=== PATIENT | male | born 1980 | race Caucasian/White ===

== ENCOUNTER 2021-02-27 13:03 | Emergency (ER) | payer SELFPAY ==
[2021-02-27 13:05] VITALS: BP 134/92; PULSE 104; RESP 16; TEMP 36.6; O2SAT 100; BMI 29.7
--- NOTE | 2021-02-27 13:14 | ED.RN ---
CALLED [facility] REQUESTED BY PT
--- NOTE | 2021-02-27 13:58 | RAD_ITS ---
STUDY: X-RAY - UNILATERAL RIBS ( RIGHT ) WITH CHEST REASON FOR EXAM: Male, 40 years old. Injury TECHNIQUE - RIBS: 4 view(s) of the ribs. TECHNIQUE - CHEST: Single PA view of the chest. COMPARISON: None. FINDINGS - RIBS: Normal visualized ribs without a demonstrated fracture. FINDINGS - CHEST: The lungs are clear and expanded. There is no demonstrated pleural abnormality. Normal size heart. Normal mediastinum and carlita. Normal visualized pulmonary arteries. Normal visualized aortic arch and descending thoracic aorta. Normal visualized thoracic spine. Normal visualized ribs, clavicles, and shoulders. There is no demonstrated abnormality of the visualized soft tissue structures of the upper abdomen. RAD/Ribs Uni Min 3V w/PA Chest IMPRESSION: RIBS: Normal x-ray examination of the ribs. CHEST: Normal x-ray examination of the chest. Electronically Signed: Yolis Iraheta MD at 15:02 EST Tel , Service support ,
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
--- NOTE | 2021-02-27 14:15 | RAD_ITS ---
STUDY: X-RAY - RIGHT KNEE REASON FOR EXAM: Male, 40 years old. Injury TECHNIQUE: 4 view(s) of the knee. COMPARISON: None. FINDINGS: Normal visualized distal femur. There is an acute fracture of the fibular head. There is soft tissue edema. Normal proximal tibiofibular articulation. There is mild degenerative arthrosis of the medial femorotibial compartment. Normal lateral femorotibial compartment. Normal patellofemoral articulation. RAD/Knee 4 or More Views IMPRESSION: Acute fracture of the fibular head. Soft tissue edema. Electronically Signed: Yolis Iraheta MD at 14:56 EST Tel , Service support ,
[2021-02-27 15:29] VITALS: RESP 16
[2021-02-27] MEDS: COVID-19 VACC, MRNA(PFIZER)/PF 30 MCG/0.3 ML SYRINGE IM (17:07)
== END 2021-02-27 17:15 | disposition home or self-care (01) ==
PROVIDERS: Emergency Provider Emergency Medicine
DX: R10.9 Unspecified abdominal pain (principal); F17.210 Nicotine dependence, cigarettes, uncomplicated; M25.561 Pain in right knee; Y08.89XA Assault by other specified means, initial encounter; Z23 Encounter for immunization
CPT/HCPCS: 71101; 73564; 91300; 99284

== ENCOUNTER 2021-12-20 03:49 | Emergency (ER) | payer OTHER, SELFPAY ==
[2021-12-20 03:49] VITALS: BP 116/84; PULSE 89; RESP 15; TEMP 36.3; O2SAT 97; BMI 29.1
[2021-12-20 03:55] VITALS: O2SAT 97
--- NOTE | 2021-12-20 04:00 | EKG12_ITS ---
Test Reason : SOB Blood Pressure : / mmHG Vent. Rate : 075 BPM Atrial Rate : 075 BPM P-R Int : 174 ms QRS Dur : 088 ms QT Int : 344 ms P-R-T Axes : 057 027 017 degrees QTc Int : 384 ms Normal sinus rhythm Normal ECG Confirmed by RAJIV MARCOS, HIMANSHU ([id number]), design editor MEETA HUNTLEY ([id number]) on 12/20/2021 10:56:16 AM Referred By: Confirmed By:HIMANSHU VANCE MD
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
[2021-12-20] MEDS: Ipratropium/Albuterol Sulfate 3 ML AMPUL.NEB INHALATION (04:11)
[2021-12-20 04:12] VITALS: PULSE 79; RESP 15
--- NOTE | 2021-12-20 04:25 | RAD_ITS ---
INDICATION: cough EXAMINATION/TECHNIQUE: X-RAY - XR Chest 2 Views COMPARISON: 02/27/2021 FINDINGS: LINES/DEVICES: None. LUNGS: No consolidation, edema or effusion. No pneumothorax. MEDIASTINUM AND CARDIOVASCULAR STRUCTURES: Cardiac silhouette not enlarged. Central airways and mediastinal contour are unremarkable. BONES AND SOFT TISSUES: Unremarkable. RAD/Chest PA and Lateral IMPRESSION: No acute cardiopulmonary disease. Electronically Signed: Jose Horne MD at 4:45 EDT ,
[2021-12-20 04:51] VITALS: BP 131/79; PULSE 76; RESP 16; O2SAT 99
[2021-12-20] MEDS: dexAMETHasone 4 MG Tablet 10 MG PO (05:11)
== END 2021-12-20 05:14 | disposition home or self-care (01) ==
PROVIDERS: Emergency Provider Emergency Medicine; Visit Provider Emergency Medicine
DX: J40 Bronchitis, not specified as acute or chronic (principal); F17.210 Nicotine dependence, cigarettes, uncomplicated; Z86.16 Personal history of COVID-19
CPT/HCPCS: 71046; 87428; 93005; 94640; 99282

== ENCOUNTER → 2022-03-29 | Outpatient (CLI) | payer OTHER, MEDICAID, SELFPAY ==
--- NOTE | 2022-03-29 17:05 | RAD_ITS ---
STUDY: X-RAY - LUMBAR SPINE REASON FOR EXAM: Male, 41 years old. low back pain TECHNIQUE: 5 view(s) of the lumbar spine were obtained. COMPARISON: None FINDINGS: Normal lumbar lordosis. There is no substantial scoliosis. There is a normal alignment of the vertebrae. Normal vertebral bodies and endplates. Normal disc space heights. The soft tissue structures are unremarkable. RAD/L/S Spine Min 4 Views IMPRESSION: Normal x-ray examination of the lumbar spine. Electronically Signed: Lam Sandy MD at 17:26 EST ,
== END | disposition home or self-care (01) ==
LOC: MTRAD 17:05
PROVIDERS: Referring Provider Physician Assistant Surgical; Visit Provider Physician Assistant Surgical
DX: M54.50 Low back pain, unspecified (principal)
CPT/HCPCS: 72110

== ENCOUNTER → 2023-10-18 | Outpatient (CLI) | payer MEDICAID, SELFPAY ==
--- NOTE | 2023-10-18 14:35 | RAD_ITS ---
STUDY: X-RAY - RIGHT SHOULDER REASON FOR EXAM: Male, 43 years old. pain TECHNIQUE: 4 view(s) of the shoulder. COMPARISON: None. FINDINGS: Normal glenohumeral articulation. Normal acromioclavicular joint. Normal acromion. Normal humeral head and visualized proximal humerus. The soft tissue structures are unremarkable. Normal visualized pulmonary apex. RAD/Shoulder min 2 Views IMPRESSION: Normal x-ray examination of the shoulder. Electronically Signed: Lam Sandy MD at 8:34 EDT ,
--- NOTE | 2023-10-18 14:35 | RAD_ITS ---
STUDY: X-RAY - CERVICAL SPINE REASON FOR EXAM: Male, 43 years old. Neuropathy of arm with neck pain TECHNIQUE: 5 view(s) of the cervical spine were obtained. COMPARISON: None FINDINGS: Normal anterior atlantoaxial articulation. Normal odontoid process. Normal cervical lordosis. Normal vertebral bodies and endplates. Normal disc space heights. Normal visualized intervertebral neuroforamina. The soft tissue structures are unremarkable. RAD/Cerv Spine 4 or 5 Views IMPRESSION: Normal x-ray examination of the visualized cervical spine. Electronically Signed: Lam Sandy MD at 8:33 EDT ,
== END | disposition home or self-care (01) ==
PROVIDERS: PCP Family Medicine; Referring Provider Family Medicine; Visit Provider Family Medicine
DX: G56.90 Unspecified mononeuropathy of unspecified upper limb (principal); M54.2 Cervicalgia
CPT/HCPCS: 72050; 73030

== ENCOUNTER 2024-02-01 13:05 | Emergency (ER) | payer SELFPAY ==
[2024-02-01 13:07] VITALS: BP 133/77; PULSE 84; RESP 18; TEMP 36.1; O2SAT 100; BMI 26.9
--- NOTE | 2024-02-01 13:26 | RAD_ITS ---
STUDY: X-RAY - RIGHT ELBOW REASON FOR EXAM: Male, 43 years old. pain TECHNIQUE: 4 view(s) of the elbow. COMPARISON: None. FINDINGS: Normal visualized humerus, radius and ulna. Normal radiocapitellar and ulnotrochlear articulations. The soft tissue structures are unremarkable. There is no demonstrated fracture. RAD/Elbow min 3 Views IMPRESSION: Normal x-ray examination of the elbow. Electronically Signed: Luis Cunha MD at 14:23 EDT ,
--- NOTE | 2024-02-01 13:26 | RAD_ITS ---
STUDY: X-RAY CHEST REASON FOR EXAM: Male, 43 years old. cough TECHNIQUE: Frontal and lateral views of the chest. COMPARISON: 12/20/2021. FINDINGS: The lungs are clear and expanded. There is no demonstrated pleural abnormality. Normal size heart. Normal mediastinum and carlita. Normal visualized pulmonary arteries. Normal visualized aortic arch and descending thoracic aorta. Normal visualized thoracic spine. Normal visualized ribs, clavicles, and shoulders. There is no demonstrated abnormality of the visualized soft tissue structures of the upper abdomen. RAD/Chest PA and Lateral IMPRESSION: Normal x-ray examination of the chest. Electronically Signed: Luis Cunha MD at 14:24 EDT ,
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
[2024-02-01] MEDS: Ibuprofen 600 MG Tablet PO (13:37)
[2024-02-01 15:05] VITALS: BP 134/78; PULSE 89; RESP 18; O2SAT 99
== END 2024-02-01 15:18 | disposition home or self-care (01) ==
PROVIDERS: Emergency Provider Emergency Medicine; Visit Provider Emergency Medicine
DX: J06.9 Acute upper respiratory infection, unspecified (principal); M77.11 Lateral epicondylitis, right elbow; F17.210 Nicotine dependence, cigarettes, uncomplicated
CPT/HCPCS: 71046; 73080; 87631; 99282

== ENCOUNTER 2024-04-13 18:15 | Emergency (ER) | payer BC, SELFPAY ==
[2024-04-13 18:16] VITALS: BP 136/80; PULSE 106; RESP 18; TEMP 37.2; O2SAT 97; BMI 31.0
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
[2024-04-13] MEDS: Ketorolac 15 MG/ML Vial IM (19:20)
== END 2024-04-13 19:36 | disposition home or self-care (01) ==
LOC: ED 19:15
PROVIDERS: Emergency Provider Emergency Medicine; Referring Provider Emergency Medicine; Visit Provider Emergency Medicine
DX: M77.11 Lateral epicondylitis, right elbow (principal); F17.210 Nicotine dependence, cigarettes, uncomplicated; Z79.51 Long term (current) use of inhaled steroids
CPT/HCPCS: 96372; 99282

== ENCOUNTER 2024-04-14 19:19 | Emergency (ER) | payer BC, SELFPAY ==
[2024-04-14 19:20] VITALS: BP 125/74; PULSE 81; RESP 18; TEMP 36.6; O2SAT 99; BMI 29.7
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
--- NOTE | 2024-04-14 19:36 | RAD_ITS ---
EXAM: XR CHEST, 2 VIEWS CLINICAL INDICATION: fever, cough TECHNIQUE: Frontal and lateral views of the chest. COMPARISON: 02.01.24 FINDINGS: LUNGS AND PLEURAL SPACES: Unremarkable. No consolidation or edema. No pneumothorax. No effusion. HEART: Unremarkable. Cardiac silhouette not enlarged. MEDIASTINUM: Central airways and mediastinal contour are unremarkable. BONES/JOINTS: Unremarkable. No acute fracture. SOFT TISSUES: Unremarkable. RAD/Chest PA and Lateral IMPRESSION: No radiographic evidence of acute cardiopulmonary disease. Electronically Signed: Hernandez Núñez MD at 20:43 EST ,
[2024-04-14 20:31] VITALS: BP 118/77; PULSE 94; RESP 18; TEMP 36.8; O2SAT 100
== END 2024-04-14 20:32 | disposition home or self-care (01) ==
PROVIDERS: Emergency Provider Emergency Medicine; Referring Provider Emergency Medicine; Visit Provider Emergency Medicine
DX: U07.1 COVID-19 (principal); F17.210 Nicotine dependence, cigarettes, uncomplicated; Z79.51 Long term (current) use of inhaled steroids
CPT/HCPCS: 71046; 87631; 99282

== ENCOUNTER 2024-04-23 04:36 | Emergency (ER) | payer OTHER, BC, SELFPAY ==
[2024-04-23 04:37] VITALS: BP 130/100; PULSE 85; RESP 16; TEMP 36.7; O2SAT 100; BMI 31.1
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
[2024-04-23] MEDS: Morphine 4 MG/ML Syringe IM (05:02)
[2024-04-23] MEDS: Orphenadrine 60 MG/2 ML Ampul IM (05:02)
[2024-04-23] MEDS: Ketorolac 60 MG/2 ML Vial IM (05:02)
--- NOTE | 2024-04-23 05:40 | RAD_ITS ---
EXAM: XR LUMBOSACRAL SPINE, 2 OR 3 VIEWS CLINICAL INDICATION: pain, ?injury TECHNIQUE: Frontal and lateral views of the lumbar spine and sacrum. COMPARISON: Plain film from 03/29/2022 FINDINGS: VERTEBRAE: Facet joint hypertrophy at L4/5 and L5/S1. Preserved vertebral body height. No fracture. No spondylolisthesis. Preservation of the normal lumbar lordosis. DISC SPACES: See above. GASTROINTESTINAL TRACT: Unremarkable as visualized. Included bowel gas pattern is non-obstructive. RAD/Lumbar Spine 2 or 3 Views IMPRESSION: 1. No acute abnormalities identified in the lumbar spine on this plain film exam. 2. Facet joint hypertrophy at L4/5 and L5/S1. Electronically Signed: Hernandez Funes MD at 7:38 EST ,
[2024-04-23 06:48] VITALS: BP 120/89; PULSE 75; RESP 16; TEMP 36.7; O2SAT 98
== END 2024-04-23 06:55 | disposition home or self-care (01) ==
PROVIDERS: Emergency Provider Emergency Medicine; Visit Provider Emergency Medicine
DX: S39.012A Strain of muscle, fascia and tendon of lower back, initial encounter (principal); F17.210 Nicotine dependence, cigarettes, uncomplicated; Y99.0 Civilian activity done for income or pay; Z79.51 Long term (current) use of inhaled steroids; X58.XXXA Exposure to other specified factors, initial encounter
CPT/HCPCS: 72100; 96372; 99283

== ENCOUNTER → 2024-06-18 | Outpatient (CLI) | payer MEDICAID, SELFPAY ==
--- NOTE | 2024-06-18 16:34 | MRI_ITS ---
PROCEDURE: SPINE LUMBAR (ROUTINE) (MRISPL), 06/18/2024 REASON FOR EXAM: PAIN TECHNIQUE: Multisequence multiplanar MR of the lumbar spine was performed without IV contrast. COMPARISON: Radiographs 04/23/2024 FINDINGS: Vertebral body heights are preserved. T1 bright likely hemangioma within the S1 vertebral body. Similar trace likely degenerative grade 1 anterolisthesis at L4-L5. Conus medullaris terminates normally at the L1 inferior endplate level. Unremarkable appearance of the cauda equina. L1-2: Note the spinal canal and foramina are partially imaged at this level on axial sequences, but are incompletely included on sagittal sequences. No significant spinal canal or foraminal stenosis identified. L2-3: Trace diffuse disc bulging. No significant spinal canal or foraminal stenosis. L3-4: Note that axial sequences omit a portion of the neural foramen and spinal canal due to reorientation with the long axis of the spine at this level, however are the region is included in its entirety on sagittal sequences. Mild diffuse disc bulging. No significant spinal canal or foraminal stenosis evident. L4-5: Mild/moderate diffuse disc bulging. Mild facet arthropathy. Mild/moderate [id number] foraminal stenosis. No significant spinal canal stenosis. L5-S1: Diffuse disc bulging with superimposed posterior central disc protrusion with slight inferior migration and a tiny annular fissure. Mild facet arthropathy. Mild/moderate RIGHT and mild LEFT foraminal stenosis. Other: Splenomegaly on the insurance job titles, 13.7 cm. MRI/Spine Lumbar (Routine) IMPRESSION: 1. Lower lumbar spondylosis as detailed, greatest from L4-S1. No high-grade sp inal canal or foraminal stenosis identified. 2. Splenomegaly. 3. Additional description as above. Reading Location: [id number]
== END | disposition home or self-care (01) ==
PROVIDERS: PCP Student in an Organized Health Care Education/Training Program; Referring Provider Student in an Organized Health Care Education/Training Program; Visit Provider Student in an Organized Health Care Education/Training Program
DX: M54.50 Low back pain, unspecified (principal)
CPT/HCPCS: 72148

== ENCOUNTER 2024-11-01 13:00 | Outpatient (RCR) | payer MEDICAID, SELFPAY ==
--- NOTE | 2024-05-14 15:06 | HP.PTEVAL_ITS ---
Patient's Visit Information Visit Information Visit Information: NIR MALDONADO is a 43 year old M referred to Physical Therapy by LUIS Johns with a diagnosis of Lumbar radiculopathy. Date of Evaluation: 05/14/24 Physical Therapist: Joseph Duran DPT Visit Plan Frequency: 2-3x /Week Duration: 6 Weeks Plan: 1) extension progression, starting in prone to prone prop, progressing to REIL. Add in PAs as needed to restore motion 2) ice and stim as needed 3) once ROM has been stored add in neutral spine core strengthening. Pt. to add in initial extension progressing to HEP. Pt. to figure out C9 and insurance. Pt. to call back once figured out. Subjective Subjective: Pt. is here today for his initial evaluation with diagnosis of lumb ar radiculopathy. Pt. reports on 04/23/24 he was sawing a pipe, he took a felt a sharp pain in his pain and instantly down his leg. pt. has constant pain in lumbar spine and down to his L calf. He does have some issues with his R leg as well, but very infrequently. Pt. reports a constant electrical current in his L leg. Pt. reports sitting for longer periods is painful and standing for longer periods of time is pain. Pt. is currently off work as well. Pt. reports having some L leg weakness where he was walking and he left like his leg gave out on him. This did happen again after sitting for a longer period of time. Better: sitting in reclining chair. Medications: muscle relaxer. He did see pain management yesterday whom started him on prednisone. He was taking Oxy, but is now done with those. Pt. is hopeful to reduce symptoms in order to get back to all work activities. Pt. did at the end of evaluation he reports seeing a physician right after his injury and attended a bit of therapy, but does not want to go back there. He then saw pain management and a different ortho for his back. Pain Lumbar spine: Pain Intensity (Out of 10): 7 Pain Intensity Range: 5 and 10 L LE: Pain Intensity (Out of 10): 7 Pain Intensity Range: 5 and 10 Objective Objective: POSTURE: Pt. has increased wt. shift to R side, but no marked lateral shift noted. PALPATION: Pt. has marked muscle tension/guarding of B paraspinals. Pt. has increased pain with spring testing of L2-L5. NEURO: Pt. has normal sensation except at lateral L thigh. Pt. has normal perkins llar DTR bilaterally. ROM: LUMBAR SPINE: flexion max loss increase NW, extension max/mod loss mild decrease NB, rotation mod loss increase NW bilat, SB mod loss increase NW bilat. Pt. has normal B hip ROM without marked increase in symptoms. MMT: Pt. has 5/5 strength throughout BLEs, but has increased pain with all testing. GAIT: Pt. has antalgic pattern. Pt. has marked guarded posture in with gait. Minimal arm swing noted. Pt. has decreased step length as well. Pt. has very guarded motions. Pt. did see pain management earlier today and they started him on prednisone and muscle relaxers. Special Tests L/S Slump test left side: Positive L/S Slump test right side: Negative L/S Left Straight Leg Raise: Positive L/S Right Straight Leg Raise: Negative Balance/Special Test Scores Oswestry Low Back Score: 30 Goals Goal 1:: LTG: Pt. to be I with HEP. Goal Time Frame: 4-6 Weeks Goal 2:: LTG: Pt. to have increased lumbar ROM to full without increase in lumbar or LLE symptoms. Goal Time Frame: 4-6 Weeks Goal 3:: STG: pt. to sleep throughout the night without increase in symptoms. Goal Time Frame: 2-4 Weeks Goal 4:: LTG: Pt. to have increased core strength to 5/5 throughout without increase in symptoms. Goal Time Frame: 4-6 Weeks Goal 5:: LTG: Pt. to ambulate without increase in lumbar or LLE symptoms. Goal Time Frame: 4-6 Weeks Goal 6:: LTG: Pt. to complete all work related activities without increase lumbar spine or LLE pain. Goal Time Frame: 4-6 Weeks Rehabilitation Potential Physical Therapy Diagnosis: Pt. has sign and symptoms consistent with lumbar radiculopathy with radiation down his L leg to level of calf. Pt. has marked loss of lumbar ROM, increased pain and difficulty with work and ADLs. Pt. would benefit from PT to address the above limitations progressing back to all work and recreational activities. Rehabilitation Potential: Good Anticipated Interventions Patient/Client Instruction: Educate patient on: Condition, Plan of Care, Risk Factors and Benefits of Fitness Program For the Purpose of:: To foster healthy habits, To improve decision making, To facilitate caregiver knowledge, To improve self management, To prevent re-injur y, To improve ability to perform tasks related to life management and To improve tolerance to ADL's Therapeutic Exercise to Include: Strength training, Power training, Postural training, Flexibilty training, Passive ROM, Active ROM, Dynamic Lumbar Stabilization and Kelly Exercises For the Purpose of:: To decrease pain, To increase ROM, To improve nutrient delivery to tissue, To increase oxygenation perfusion, To improve muscle performance and motor function, To improve ability to perform ADL's, To increase tolerance to activity/condition/position, To improve health of tissue and To decrease soft tissue restriction IF ES: Yes Other electric stimulation: Yes Cryotherapy (ice pack, ice massage): Yes For the Purpose of:: To decrease pain, To decrease swelling/inflammation and To increase ROM Text: Thank you for the opportunity to evaluate your patient. For Medicare and Medicare HMO plans, please review the plan of care and approve it. It will need to be FAXED BACK to us at [phone] for Medicare purposes. For Medicare only, by signing this I certify the plan of care. Please let me know if there are questions or concerns regarding this plan of care. Physician Signatu re: Date:
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
--- NOTE | 2024-11-01 13:37 | HP.PTREVAL_ITS ---
Re-Evaluation Intro: LUIS Johns, It has been my pleasure to treat NIR MALDONADO over the last 6 visits for Lumbar radiculopathy. Please see the progress note below for an update on the physical therapy plan of care! Subjective Subjective: Pt. comes in today with reports increased issues with his L foot. He reports having increased difficulty with picking up his L foot. He is having some back pain as well. Pt. reports back pain as 6/10 he did have a gabapentin and lyrica prior to PT. Pt. did have an injection but did not help much. Pt. reports the day after being more active he has increased pain. Pt. reports no N/T in either LE. He does get it from time to time, but not consistently. Objective Objective/Function: LUMBAR SPINE: flexion mod loss increase NW in LB, ext mod/max loss increase NW (not as bad as going FWRD), SB R min/nil loss mild increase NW, SB L min/nil loss mild increase NW, rotation L mod loss increase NW, rotation R mod loss increase NW. MMT: RLE: knee: ext 30#, flex 20.8#; ankle: DF 37.2#, PF 31.7#, EVR 14.5#, INV: 12.2# LLE: knee: ext 12.9#(pain at tailbone region), flex: 12.1# (increase in back pain). Ankle: DF 13.1#, PF 22.8#, EVR 5.5#, INV 4.9# PRONE LYING: no change PRONE PROP: mild increase NW in his symptoms REIL: decreased ROM, no change in ROM with repetition. No change in radicular symptoms noted. pt. has same sensation to light touch in BLEs. Pt. has 2+ B achilles and patellar DTR. With all of his symptoms I would really consider aquatic PT to increase lumbar mobility, decompression and progression to core strengthening. His increase in L LE strength, especially in his ankle/foot has me concerned. He is to follow up with physician after this. Plan Plan Plan: Possibly consider aquatic therapy to aide in spinal decompression and progress strengthening. eventually progressing to core strengthening and land activities. Balance/Gait/Functional tests Balance/Special Test Scores Oswestry Low Back Score: 30 Goals Goals Goal 1:: LTG: Pt. to be I with HEP. Goal Time Frame: 4-6 Weeks Goal Progress: Progressing Goal 2:: LTG: Pt. to have increased lumbar ROM to full without increase in lumbar or LLE symptoms. Goal Time Frame: 4-6 Weeks Goal Progress: Not Progressing Goal 3:: STG: pt. to sleep throughout the night without increase in symptoms. Goal Time Frame: 2-4 Weeks Goal Progress: Not Progressing Goal 4:: LTG: Pt. to have increased core strength to 5/5 throughout without increase in symptoms. Goal Time Frame: 4-6 Weeks Goal Progress: Not Progressing Goal 5:: LTG: Pt. to ambulate without increase in lumbar or LLE symptoms. Goal Time Frame: 4-6 Weeks Goal Progress: Progressing Goal 6:: LTG: Pt. to complete all work related activities without increase lumbar spine or LLE pain. Goal Time Frame: 4-6 Weeks Goal Progress: Not Progressing Anticipated Interventions Anticipated Interventions Patient/Client Instruction: Educate patient on: Condition, Plan of Care, Risk Factors and Benefits of Fitness Program For the Purpose of:: To foster healthy habits, To improve decision making, To facilitate caregiver knowledge, To improve self management, To prevent re- injury, To improve ability to perform tasks related to life management and To improve tolerance to ADL's Therapeutic Exercise to Include: Strength training, Power training, Postural training, Flexibilty training, Passive ROM, Active ROM, Dynamic Lumbar Stabilization and Kelly Exercises For the Purpose of:: To decrease pain, To increase ROM, To improve nutrient delivery to tissue, To increase oxygenation perfusion, To improve muscle performance and motor function, To improve ability to perform ADL's, To increase tolerance to activity/condition/position, To improve health of tissue and To decrease soft tissue restriction IF ES: Yes Other electric stimulation: Yes Cryotherapy (ice pack, ice massage): Yes For the Purpose of:: To decrease pain, To decrease swelling/inflammation and To increase ROM Re-Evaluation Ending Re-evaluation ending: Please do not hesitate to contact me at [phone] by phone or if you have questions or concerns regarding this new plan of care! Sincerely, Joseph Duran DPT
== END 2024-11-01 19:00 | disposition home or self-care (01) ==
LOC: PT 13:00
PROVIDERS: Referring Provider Student in an Organized Health Care Education/Training Program; Visit Provider Student in an Organized Health Care Education/Training Program
DX: M54.16 Radiculopathy, lumbar region (principal)
CPT/HCPCS: 97110; 97140; 97161; 97530

== ENCOUNTER 2025-01-22 14:57 | Outpatient (RCR) | payer MEDICAID, SELFPAY ==
--- NOTE | 2025-01-27 15:19 | HP.FCE ---
Task Lift Floor (Occasional 1-33% of Day): 40# Floor (Frequent 34-66% of Day): 20# Floor (Constant 67-100% of Day): NA Floor PDL: Light-Medium Knee (Occasional 1-33% of Day): 40# Knee (Frequent 34-66% of Day): 20# Knee (Constant 67-100% of Day): NA Knee PDL: Light-Medium Waist (Occasional 1-33% of Day): 35# Waist (Frequent 34-66% of Day): 17.5# Waist (Constant 67-100% of Day): NA Waist PDL: Light-Medium Shoulder (Occasional 1-33% of Day): 35# Shoulder (Frequent 34-66% of Day): 18# Shoulder (Constant 67-100% of Day): NA Shoulder PDL: Light-Medium Overhead (Occasional 1-33% of Day): 25# Overhead (Frequent 34-66% of Day): 12.5# Overhead (Constant 67-100% of Day): NA Overhead PDL: Light Comments: Light-Medium Physical demand level for lifting at floor- knee and waist levels Light Physical demand level for lifting at shoulder and overhead levels No constant ability to lift due to Pain Work Activity/Posture Bending: Occasional Ability (1-33% of day) Squatting: Occasional Ability (1-33% of day) Comments: with external support Kneeling: Occasional Ability (1-33% of day) Comments: with external support Reaching out: Frequent Ability (34-66% of day) Comments: completed while sitting Reaching up: Frequent Ability (34-66% of day) Comments: completed while sitting Sitting: Constant Ability (67-100% of day) Walking: Occasional Ability (1-33% of day) Standing: Occasional Ability (1-33% of day) Reference Reference: Duration Sedentary Sedentary Light Light Light Medium Medium Medium Heavy Very Heavy Heavy Occasional (0-33% of day) Frequent (34-66% of day) Constant (67-100% of day) 10 # Negligible Negligible 15 # 8 # Negligible 20 # 10# Negli. 35 # 18 # 7 # 50 # 25 # 10 # 75 # 100 # >100 # 38 # 50 # >50 # 15 # 20 # >20 # Patient Information Height: 1.78 m Weight:: 95.254 kg Hand Dominance: left Medical History Medical History Including Restrictions: pt states he was in good health until he hurt his back in June of 2024. Pt states he was dx with Lumbar Radiculopathy June 212024. Pt states he was injured at work. States he was cutting a piece of pipe and when he took a step back he hurt his back. Pt states he went to ER, and was sent to Ortho- and was then sent to pain mtg. ( Dr. Winslow). pt states he has not been to Pain mtg. due to Workers compensation and or insurance coverage. Pt states he also did Physical therapy. Pt states he did not have improvement. pt states he will have MRI that Dr. Orozco ordered- has not been scheduled at this time. pt does smoke cigarettes has for 25 years pt states he feels he was put on lifting restrictions at one time by a [facility] . Diagnoses Diagnoses: Lumbar Radiculopathy Symptoms Symptoms: pain in bilateral legs Nerve pain Tingling Pain Pain: Pt states his pain level is 7/10 he has not taken any pain medication. pt states he has been taking Tylenol and use of Icey hot and this helps him from thinking about his pain. Work History Work History: Pt works of [employer]. Pt states he has not worked since 2024. pt states he was employed there for a year. Pt states he worked full-time typically 8 hours shifts. 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 pt states he was notified he was let go from his position 6 months following his injury. Pt states he has a lawsuit for unlawful termination pt states he does not feel he could go back to this position. Pt states he has been looking for other positions. Behavioral Behavioral: pt cooperative ADLS ADLS: PT states he lives with his family and 5 children ( 15 years to 8 months old) Pts does not work outside the home ( works from home online) Pt states it is a two story home he can go up/down stairs and has a bathroom on both levels. Pt states he has tub shower combination. Pt states he is IND with bathing/dressing. Pt states at times his has helped him with putting on his socks. PT states he needs to mow the grass because he is getting notices from the town. pt states he splints cooking/cleaning and laundry. pt states he does not drive. 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 Physical Examination ROM: pt demo ROM WFL Strength: Fet2 peak force testing shoulder flexion right 27# left 26# shoulder extension right 33# left 30# Biceps right 39# left 33# Triceps right 29# left 27# Hip flexion right 51# left 28.6# Quadriceps right 33.9# left 36.7# Hamstrings right 29.4# left 28.9# Right Rn Document Improvement Specialist Strength Average: 123.33 Right Rn Document Improvement Specialist Strength Percentile: 53% Left Rn Document Improvement Specialist Strength Average: 135.00 Left Rn Document Improvement Specialist Strength Percentile: 89% Right Lateral Pinch Average: 22.00 Right Lateral Pinch Percentile: 50% Left Lateral Pinch Average: 18.00 Left Lateral Pinch Percentile: 25% Right Tripod Pinch Average: 19.33 Right Tripod Pinch Percentile: 25% Left Tripod Pinch Average: 12.66 Left Tripod Pinch Percentile: 10% Sensation: states in LE tingling at times Fine Motor: denies Balance: functional reach 11.5" Good balance no loss of balance during assessment Non Material Handling Activities Bending: pt demo slow bending 3/3x heart rate 73 10/10x heart rate 104 and 10/10 with no change in speed heart rate 100 dropped to 80 15 second following. reports back pain 7/10 pt states sharp shooting pain and right toe tingling pt can bend forward on occasional ability Squatting: heart rate starting 77 pt demo the ability to squat 3/3x heart rate 82, 10/10x heart rate 104 , 10/10x rapidly heart rate 98 pt use of external support pt states back pain 8/10 pt can squat on occasional ability with external support Kneeling: pt demo the ability to kneel 3/3x, 10/10x with external support heart rate 102 and came down to 97 15 sec. later. pt was unable to kneel 10 x rapidly pt needed to sit following. pt states he feels pressure on his hips. pt can kneel on occasional ability with use of external support. Reaching out/up: pt demo the ability to reach up/out 3/3x, 10/10x and 10/10x rapidly heart rate 67 pt completed while sitting pt can reach up/out on frequent ability while sitting Walking: pt demo ambulation with antalgic gait pattern for 15 min - heart rate 73 reported back pain 8/10 pt can ambulate on occasional ability Standing: pt demo the ability to stand for 6 min shifting his body weight - pt can stand on occasional ability shifting body weight as needed Sitting: pt demo the ability to sit for 50 min with no apparent or expressed discomfort. Climbing Stairs: pt demo the ability to ascend and descend 10 steps with a reciprocal step pattern and use of handrails. Dynamic Occasional Lifting Capacity Floor Lift: pt demo the ability to lift 25# + box 15# from floor level with good ability pt demo the ability to lift 40# maximally form this level with good lifting mechanics Knee Lift: pt demo the ability to lift 25# + box 15# from knee level with good ability pt demo the ability to lift 40# maximally form this level with good lifting mechanics Waist Lift: pt demo the ability to lift 20# + box at 15# from waist level with good ability pt demo the ability to lift 35# maximally form this level with good lifting mechanics Shoulder Lift: pt demo the ability to lift 20# + box at 15# from shoulder level with good ability pt demo the ability to lift 35# maximally form this level with good lifting mechanics Overhead Lift: pt demo the ability to lift 25# maximally form over head with good ability Carrying: pt demo the ability to carry 10#+ box at15# for maximal carry at 25# for 30 feet. Comments: pt demo with guarded positioning with lift and repetitive motion tasks. following assessment pt reports back pain 8/10 stated initial back pain was 7/10
--- NOTE | 2025-01-27 15:19 | HP.OTFCE.D ---
FCE D/C Summary Discharge text: NIR JOSS JOEL was seen for a one time visit for an FCE on 01/22/25 and is discharged.
== END 2025-01-22 19:00 | disposition home or self-care (01) ==
LOC: OT 14:57
PROVIDERS: Referring Provider Orthopaedic Surgery Orthopaedic Surgery of the Spine; Visit Provider Orthopaedic Surgery Orthopaedic Surgery of the Spine
DX: M54.16 Radiculopathy, lumbar region (principal)
CPT/HCPCS: 97750